=== PATIENT | female | born 1995 | race Two or more races ===

== ENCOUNTER 2023-04-17 13:10 | Outpatient (CLI) | payer OTHER | END 2023-04-17 14:25 | disposition home or self-care (01) | LOC: PRENATAL 13:10 | PROVIDERS: ATTEND Obstetrics & Gynecology Maternal & Fetal Medicine | DX: O36.80X0 Pregnancy with inconclusive fetal viability, not applicable or unspecified (principal); Z3A.11 11 weeks gestation of pregnancy ==

== ENCOUNTER 2023-05-18 08:26 | Outpatient (CLI) | payer OTHER ==
[2023-05-18] MEDS ORDERED: PROGESTERONE200 MG VAG (12:18)
[2023-05-19] MEDS ORDERED: INDOMETHACIN25 MG PO (17:14)
== END 2023-05-18 09:25 | disposition home or self-care (01) ==
LOC: PRENATAL 08:26
PROVIDERS: ATTEND Obstetrics & Gynecology Maternal & Fetal Medicine
DX: O26.849 Uterine size-date discrepancy, unspecified trimester (principal); Z3A.15 15 weeks gestation of pregnancy

== ENCOUNTER 2023-05-19 11:30 | Day surgery (SDC) | payer OTHER ==
[~2023-05-19 11:30] MED LIST: PROGESTERONE200 MG VAG
[2023-05-19] MEDS ORDERED: INDOMETHACIN25 MG PO (17:14)
== END 2023-05-19 21:00 | disposition home or self-care (01) ==
LOC: CIR.AMB 11:30
PROVIDERS: ATTEND Obstetrics & Gynecology Maternal & Fetal Medicine
DX: O34.32 Maternal care for cervical incompetence, second trimester (principal); Z3A.16 16 weeks gestation of pregnancy; Z20.822 Contact with and (suspected) exposure to COVID-19

== ENCOUNTER 2023-06-15 08:19 | Outpatient (CLI) | payer OTHER ==
[~2023-06-15 08:19] MED LIST changes: +INDOMETHACIN25 MG PO
== END 2023-06-15 10:32 | disposition home or self-care (01) ==
LOC: PRENATAL 08:19
PROVIDERS: ATTEND Obstetrics & Gynecology Maternal & Fetal Medicine
DX: O35.3XX0 Maternal care for (suspected) damage to fetus from viral disease in mother, not applicable or unspecified (principal); O34.30 Maternal care for cervical incompetence, unspecified trimester; Z3A.19 19 weeks gestation of pregnancy

== ENCOUNTER 2023-07-17 14:40 | Outpatient (CLI) | payer OTHER | END 2023-07-17 17:13 | disposition home or self-care (01) | LOC: PRENATAL 14:40 | PROVIDERS: ATTEND Obstetrics & Gynecology Maternal & Fetal Medicine | DX: O26.849 Uterine size-date discrepancy, unspecified trimester (principal); O34.30 Maternal care for cervical incompetence, unspecified trimester; O26.879 Cervical shortening, unspecified trimester; Z3A.24 24 weeks gestation of pregnancy ==

== ENCOUNTER → 2023-08-14 | Outpatient (CLI) | payer OTHER | END | disposition home or self-care (01) | LOC: PRENATAL 14:18 | PROVIDERS: ATTEND Obstetrics & Gynecology Maternal & Fetal Medicine | DX: O26.849 Uterine size-date discrepancy, unspecified trimester (principal); O34.30 Maternal care for cervical incompetence, unspecified trimester; O26.879 Cervical shortening, unspecified trimester; Z3A.28 28 weeks gestation of pregnancy ==

== ENCOUNTER 2023-09-03 08:06 | Outpatient (CLI) | payer OTHER | END 2023-09-03 08:08 | disposition home or self-care (01) | LOC: PRENATAL 08:06 | PROVIDERS: ATTEND Obstetrics & Gynecology Maternal & Fetal Medicine | DX: O26.849 Uterine size-date discrepancy, unspecified trimester (principal); O34.30 Maternal care for cervical incompetence, unspecified trimester; O26.879 Cervical shortening, unspecified trimester; O36.5990 Maternal care for other known or suspected poor fetal growth, unspecified trimester, not applicable or unspecified; Z3A.31 31 weeks gestation of pregnancy ==

== ENCOUNTER 2023-09-25 14:51 | Outpatient (CLI) | payer OTHER | END 2023-09-25 15:41 | disposition home or self-care (01) | LOC: PRENATAL 14:51 | PROVIDERS: ATTEND Obstetrics & Gynecology Maternal & Fetal Medicine | DX: O26.849 Uterine size-date discrepancy, unspecified trimester (principal); O36.8199 Decreased fetal movements, unspecified trimester, other fetus; Z3A.34 34 weeks gestation of pregnancy ==

== ENCOUNTER 2023-10-16 14:45 | Outpatient (CLI) | payer OTHER | END 2023-10-16 14:47 | disposition home or self-care (01) | LOC: PRENATAL 14:45 | PROVIDERS: ATTEND Obstetrics & Gynecology Maternal & Fetal Medicine | DX: O26.849 Uterine size-date discrepancy, unspecified trimester (principal); O36.8199 Decreased fetal movements, unspecified trimester, other fetus; O36.5990 Maternal care for other known or suspected poor fetal growth, unspecified trimester, not applicable or unspecified; Z3A.37 37 weeks gestation of pregnancy ==